=== PATIENT | female | born 1955 | race Caucasian/White ===

== ENCOUNTER → 2017-02-04 14:26 | Outpatient (CLI) | payer MEDICAID | END | disposition home or self-care (01) | LOC: D.CT 14:26 | DX: R91.1 Solitary pulmonary nodule (principal) ==

== ENCOUNTER → 2018-04-14 13:32 | Outpatient (CLI) | payer OTHER | END | disposition home or self-care (01) | LOC: D.CT 13:00 | DX: R91.8 Other nonspecific abnormal finding of lung field (principal) ==